=== PATIENT | male | born 1965 | race Caucasian/White ===

== ENCOUNTER 2017-07-17 07:47 | Emergency (ER) | payer BC ==
[2017-07-17 07:56] VITALS: BP 134/90; PULSE 93; TEMP 98.7; BMI 39.0
--- NOTE | 2017-07-17 08:03 | PDOC ---
Attending Attestation - Resident Resident Name: Jaspreet Harris - HPI HPI: 07/17/17 11:01 Pt presents to the ED complaining of a three day history of LLE redness and pain. States that he had a fever 4 days ago, which spontaneously resolved. Denies nausea and vomiting. Well appearing in the ED. Denies prior history of DM or other immunocompromise. 07/17/17 11:12 - Physicial Exam PE: 07/17/17 11:13 Agree with resident exam. LLE is red, hot and tender, with area of cellulitis extending from just above the ankle to just below the knee. - Medical Decision Making 07/17/17 11:13 Patient presents to the ED with LLE redness consistent with cellulitis. Since there are no systemic signs of infection, and the patient has not yet tried PO antibiotics, will treat in the ED with IV clinda and give rx for PO clinda at home. Labs are within normal limits. Patient instructed to return to fast track within two days for cellulitis check--will be admitted at that time if symptoms are not improving. Patient understands that he must return to the ED immediately for fevers, nausea and vomiting, spreading erythema.
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
[2017-07-17] MEDS ORDERED: SODIUM CHLORIDE 1,000 ML IV STA (08:45)
[2017-07-17 08:48] LABS: BASO % 0.7 % (0-2.0); EOS % 2.8 % (0-4.5); HEMATOCRIT 43.9 % (35.4-49); HEMOGLOBIN 14.8 GM/dL (11.7-16.9); LYMPH % 15.4 % (8-40); MCH 31.2 pg (25.7-33.7); MCHC 33.8 g/dl (32.0-35.9); MEAN CELL VOLUME 92.5 fl (80-96); MEAN PLT VOLUME 8.6 fl (7.5-11.1); MONO % 10.6 % (3.8-10.2); NEUT % 70.5 % (42.8-82.8); PLATELET COUNT 165 K/MM3 (134-434); RBC 4.75 M/mm3 (4.00-5.60); RDW 13.9 % (11.9-15.9); WHITE BLOOD COUNT 9.3 K/mm3 (4.0-10.0)
[2017-07-17] MEDS ORDERED: CLINDAMYCIN 600MG PREMIX IVPB 600 MG/50 ML BAG IVPB ONE ×2 (08:48→08:50)
[2017-07-17 09:06] LABS: INR 1.05 (0.82-1.09); PROTHROMBIN TIME (PATIENT) 11.9 SEC (9.98-11.88)
[2017-07-17 09:09] LABS: ACTIVATED PTT 31.2 SECONDS (26.9-34.4)
[2017-07-17 09:18] LABS: ANION GAP 6 (8-16); BILIRUBIN,TOTAL 0.5 mg/dL (0.2-1.0); BLOOD UREA NITROGEN 12 mg/dL (7-18); CHLORIDE 107 mmol/L (98-107); CO2 26 mmol/L (21-32); CREATININE 0.9 mg/dL (0.7-1.3); GLUCOSE,RANDOM 118 mg/dL (74-106); POTASSIUM 3.9 mmol/L (3.5-5.1); SGOT/AST 20 U/L (15-37); SGPT/ALT 44 U/L (12-78); SODIUM 139 mmol/L (136-145)
[2017-07-17 09:20] LABS: ALBUMIN 3.4 g/dl (3.4-5.0); ALK PHOS 51 U/L (45-117)
[2017-07-17] MEDS ORDERED: CLINDAMYCIN 600MG PREMIX IVPB 600 MG/50 ML BAG IVPB SCH (10:00)
--- NOTE | 2017-07-17 13:00 | EKG ---
Test Reason : Blood Pressure : / mmHG Vent. Rate : 090 BPM Atrial Rate : 090 BPM P-R Int : 134 ms QRS Dur : 088 ms QT Int : 342 ms P-R-T Axes : 032 -30 015 degrees QTc Int : 418 ms NORMAL SINUS RHYTHM LEFT AXIS DEVIATION POOR R WAVE PROGRESSION ABNORMAL ECG NO PREVIOUS ECGS AVAILABLE CLINICAL CORRELATION IS RECOMMENDED Confirmed by BERNA CH MD ([id number]) on 07/17/2017 1:00:04 PM Referred By: Confirmed By:BERNA CH MD
== END 2017-07-17 11:21 | disposition home or self-care (01) ==
LOC: JER 07:47
DX: L03.116 Cellulitis of left lower limb (principal); M79.662 Pain in left lower leg; T24.002S Burn of unspecified degree of unspecified site of left lower limb, except ankle and foot, sequela; X08.8XXS Exposure to other specified smoke, fire and flames, sequela
CPT/HCPCS: 36415; 71045-TC; 73562-TC-RT; 80053; 83605; 85025; 85610; 85730; 87040; 93005; 93010; 99283-25

== ENCOUNTER 2022-12-22 16:40 | Emergency (ER) | payer BC ==
[2022-12-22 16:53] VITALS: TEMP 98; BMI 41.8
[2022-12-22] MEDS ORDERED: chlordiazePOXIDE HCL 25 MG CAPSULE PO ONE (18:52)
[2022-12-22] MEDS ORDERED: chlordiazePOXIDE HCL 25 MG CAPSULE ONE (18:58)
[2022-12-22] MEDS ORDERED: LIDOCAINE HCL/PF 1% SDV 5ML VIAL ONE (20:23)
[2022-12-22 20:48] LABS: BASO % 0.6 % (0-2.0); HEMATOCRIT 42.7 % (35.4-49); HEMOGLOBIN 14.7 GM/dL (11.7-16.9); LYMPH % 21.4 % (8-40); MCH 31.8 pg (25.7-33.7); MCHC 34.5 g/dl (32.0-35.9); MEAN CELL VOLUME 92.2 fl (80-96); MEAN PLT VOLUME 8.9 fl (7.5-11.1); MONO % 9.3 % (3.8-10.2); NEUT % 66.7 % (42.8-82.8); PLATELET COUNT 196 10^3/uL (134-434); RBC 4.63 M/mm3 (4.00-5.60); RDW 13.5 % (11.9-15.9); WHITE BLOOD COUNT 9.6 K/mm3 (4.0-10.0)
[2022-12-22 20:58] VITALS: RESP 18
[2022-12-22 20:58] LABS: INR 1.04 (0.83-1.09); PROTHROMBIN TIME (PATIENT) 12.1 SEC (9.7-13.0)
[2022-12-22 21:01] LABS: ACTIVATED PTT 28.7 SECONDS (25.2-36.5)
[2022-12-22 21:14] LABS: CALCIUM 8.9 mg/dL (8.5-10.1)
[2022-12-22 21:15] LABS: ALBUMIN 3.8 g/dl (3.4-5.0); BLOOD UREA NITROGEN 17.8 mg/dL (7-18)
[2022-12-22 21:18] LABS: CREATININE 1.3 mg/dL (0.55-1.3)
[2022-12-22 21:20] LABS: BILIRUBIN,TOTAL 0.3 mg/dL (0.2-1); TOT PROT 7.1 g/dl (6.4-8.2)
[2022-12-22 22:10] VITALS: BP 116/72; PULSE 78
== END 2022-12-22 22:10 | disposition home or self-care (01) ==
LOC: JERFT 16:40
PROC: 0HQKXZZ Repair Right Lower Leg Skin, External Approach (ICD-10-PCS; principal; 2022-12-22)
DX: S91.011A Laceration without foreign body, right ankle, initial encounter (principal); M25.571 Pain in right ankle and joints of right foot; V28.09XA Other motorcycle driver injured in noncollision transport accident in nontraffic accident, initial encounter; Y93.55 Activity, bike riding
CPT/HCPCS: 36415; 73610-TC-RT-FY; 73630-TC-RT-FY; 80053; 82962; 85025; 85610; 85730; 87040; 87070; 87205; 93005; 93010; 99285-25

== ENCOUNTER 2023-01-23 12:28 | Inpatient (IN) | payer BC ==
[2023-01-23] MEDS ORDERED: PIPERACILLIN/TAZOB 4.5 GM 4.5 GM in DEXTROSE 5%-WATER 100 ML IVPB ONE (13:22)
[2023-01-23] MEDS ORDERED: VANCOMYCIN 2,000 MG in DEXTROSE 5%-WATER - 250 ML IVPB ONE (13:23)
[2023-01-23] MEDS ORDERED: morphine CARPU-JECT 4 MG/1 ML DISP.SYRIN IVPUSH ONE (13:27)
[2023-01-23] MEDS ORDERED: morphine SULFATE 4 MG/ML VIAL ONE (13:39)
[2023-01-23] MEDS ORDERED: PIPERACILLIN/TAZOB 4.5 GM 4.5 GM/100 ML BAG IVPB ONE (13:39)
[2023-01-23] MEDS ORDERED: VANCOMYCIN/WATER 2 GRAMS 2,000 MG/400 ML PIGGYBACK IVPB ONE (13:44)
[2023-01-23 13:51] LABS: EOS % 6.4 % (0-4.5); HEMATOCRIT 40.8 % (35.4-49); HEMOGLOBIN 14.2 GM/dL (11.7-16.9); MCHC 34.8 g/dl (32.0-35.9); MEAN CELL VOLUME 89.2 fl (80-96); MEAN PLT VOLUME 8.1 fl (7.5-11.1); MONO % 14.1 % (3.8-10.2); NEUT % 58.5 % (42.8-82.8); PLATELET COUNT 186 10^3/uL (134-434); RBC 4.57 M/mm3 (4.00-5.60)
[2023-01-23 14:01] LABS: INR 1.1 (0.83-1.09); PROTHROMBIN TIME (PATIENT) 12.7 SEC (9.7-13.0)
[2023-01-23 14:04] LABS: ACTIVATED PTT 30.4 SECONDS (25.2-36.5)
[2023-01-23 14:12] LABS: POTASSIUM 4.1 mmol/L (3.5-5.1)
[2023-01-23 14:14] LABS: CALCIUM 8.9 mg/dL (8.5-10.1)
[2023-01-23 14:15] LABS: ALBUMIN 3.5 g/dl (3.4-5.0); BLOOD UREA NITROGEN 20.1 mg/dL (7-18)
[2023-01-23 14:18] LABS: CREATININE 1.1 mg/dL (0.55-1.3)
[2023-01-23 14:20] LABS: BILIRUBIN,TOTAL 0.5 mg/dL (0.2-1)
[2023-01-23 14:30] LABS: ERYTHROCYTE SEDIMENTATION RATE 13 mm/hr (0-20)
[2023-01-23] MEDS: ENOXAPARIN NA (PORCINE) 40 MG/0.4 ML DISP.SYRIN SQ SCH ×2 (19:50→21:17)
[2023-01-23] MEDS: ACETAMINOPHEN 325 MG TABLET (FP) PO PRN (20:11)
[2023-01-23 20:30] VITALS: BMI 39.7
[2023-01-23] MEDS: PIPERACILLIN/TAZOB 4.5 GM 4.5 GM in DEXTROSE 5%-WATER 100 ML IVPB SCH (21:16)
[2023-01-23] MEDS ORDERED: ACETAMINOPHEN 1000 MG/100 ML BAG IVPB ONE (23:16)
[2023-01-24] MEDS: VANCOMYCIN PREMIX 1.5 GM 1,500 MG/300 ML BAG IVPB SCH ×2 (02:06→14:35)
[2023-01-24] MEDS: PIPERACILLIN/TAZOB 4.5 GM 4.5 GM in DEXTROSE 5%-WATER 100 ML IVPB SCH ×3 (05:22→21:04)
[2023-01-24] MEDS: ACETAMINOPHEN 325 MG TABLET (FP) PO PRN (09:19)
[2023-01-24] MEDS: ENOXAPARIN NA (PORCINE) 40 MG/0.4 ML DISP.SYRIN SQ SCH ×2 (09:19→21:03)
[2023-01-24] MEDS: oxyCODONE HCL 5 MG TABLET PO PRN ×3 (10:26→22:51)
[2023-01-25] MEDS: VANCOMYCIN PREMIX 1.5 GM 1,500 MG/300 ML BAG IVPB SCH ×2 (02:21→15:05)
[2023-01-25] MEDS: PIPERACILLIN/TAZOB 4.5 GM 4.5 GM in DEXTROSE 5%-WATER 100 ML IVPB SCH ×3 (05:18→21:40)
[2023-01-25] MEDS: oxyCODONE HCL 5 MG TABLET PO PRN ×2 (06:00→09:58)
[2023-01-25] MEDS: ENOXAPARIN NA (PORCINE) 40 MG/0.4 ML DISP.SYRIN SQ SCH ×2 (09:55→21:40)
[2023-01-25 11:31] LABS: HEMATOCRIT 39.6 % (35.4-49); HEMOGLOBIN 13.9 GM/dL (11.7-16.9); MCH 31.3 pg (25.7-33.7); MEAN CELL VOLUME 89.4 fl (80-96); MEAN PLT VOLUME 8.2 fl (7.5-11.1); PLATELET COUNT 170 10^3/uL (134-434); RBC 4.43 M/mm3 (4.00-5.60); RDW 13.3 % (11.9-15.9)
[2023-01-25 11:52] LABS: POTASSIUM 4.3 mmol/L (3.5-5.1)
[2023-01-25 11:53] LABS: CALCIUM 8.4 mg/dL (8.5-10.1)
[2023-01-25 11:54] LABS: BLOOD UREA NITROGEN 12.8 mg/dL (7-18)
[2023-01-25 11:57] LABS: CREATININE 1.1 mg/dL (0.55-1.3)
[2023-01-25] MEDS ORDERED: SILVER SULFADIAZINE 1% TOP CREAM 50 GM JAR TP SCH (12:15)
[2023-01-25] MEDS ORDERED: oxyCODONE HCL 5 MG TABLET PO PRN ×2 (12:42→12:43)
[2023-01-25] MEDS ORDERED: ACETAMINOPHEN 325 MG TABLET (FP) PO PRN (12:43)
[2023-01-25] MEDS: GABAPENTIN 100 MG CAPSULE PO SCH ×2 (13:25→21:40)
[2023-01-25] MEDS: DOCUSATE SODIUM 100 MG CAPSULE (FP) PO SCH ×2 (13:26→21:40)
[2023-01-25] MEDS: SILVER SULFADIAZINE 1% TOP CREAM 50 GM JAR TP SCH (15:35)
[2023-01-25] MEDS ORDERED: ACETAMINOPHEN 500 MG TABLET (FP) PO PRN (17:05)
[2023-01-26] MEDS: VANCOMYCIN PREMIX 1.5 GM 1,500 MG/300 ML BAG IVPB SCH (02:10)
[2023-01-26] MEDS: oxyCODONE HCL 5 MG TABLET PO PRN ×3 (02:14→20:45)
[2023-01-26] MEDS: PIPERACILLIN/TAZOB 4.5 GM 4.5 GM in DEXTROSE 5%-WATER 100 ML IVPB SCH ×3 (05:23→23:00)
[2023-01-26] MEDS: GABAPENTIN 100 MG CAPSULE PO SCH ×3 (05:24→23:00)
[2023-01-26 09:35] LABS: MCH 31.4 pg (25.7-33.7); MCHC 34.9 g/dl (32.0-35.9); MEAN CELL VOLUME 89.8 fl (80-96); MEAN PLT VOLUME 7.9 fl (7.5-11.1); PLATELET COUNT 190 10^3/uL (134-434); RBC 4.78 M/mm3 (4.00-5.60); RDW 13.4 % (11.9-15.9); WHITE BLOOD COUNT 5.5 K/mm3 (4.0-10.0)
[2023-01-26] MEDS ORDERED: COLLAGENASE CLOSTRIDIUM HIST. 30 GRAMS TUBE TP SCH ×2 (10:00→13:21)
[2023-01-26] MEDS: ENOXAPARIN NA (PORCINE) 40 MG/0.4 ML DISP.SYRIN SQ SCH ×2 (10:05→23:00)
[2023-01-26] MEDS: SILVER SULFADIAZINE 1% TOP CREAM 50 GM JAR TP SCH (10:05)
[2023-01-26] MEDS: DOCUSATE SODIUM 100 MG CAPSULE (FP) PO SCH ×2 (10:06→23:00)
[2023-01-26 10:52] LABS: POTASSIUM 4.5 mmol/L (3.5-5.1)
[2023-01-26 11:01] LABS: ALBUMIN 3.5 g/dl (3.4-5.0); BLOOD UREA NITROGEN 16.7 mg/dL (7-18); CALCIUM 8.9 mg/dL (8.5-10.1)
[2023-01-26 11:06] LABS: BILIRUBIN,TOTAL 0.4 mg/dL (0.2-1); TOT PROT 7.1 g/dl (6.4-8.2)
[2023-01-27] MEDS: PIPERACILLIN/TAZOB 4.5 GM 4.5 GM in DEXTROSE 5%-WATER 100 ML IVPB SCH ×3 (05:31→21:40)
[2023-01-27] MEDS: GABAPENTIN 100 MG CAPSULE PO SCH ×3 (05:32→21:41)
[2023-01-27] MEDS: oxyCODONE HCL 5 MG TABLET PO PRN ×4 (05:55→20:03)
[2023-01-27 09:16] LABS: HEMATOCRIT 41.1 % (35.4-49); HEMOGLOBIN 14.2 GM/dL (11.7-16.9); MCH 31.4 pg (25.7-33.7); MCHC 34.5 g/dl (32.0-35.9); MEAN CELL VOLUME 91.1 fl (80-96); MEAN PLT VOLUME 8.4 fl (7.5-11.1); PLATELET COUNT 186 10^3/uL (134-434); RBC 4.51 M/mm3 (4.00-5.60); RDW 13.1 % (11.9-15.9); WHITE BLOOD COUNT 5.7 K/mm3 (4.0-10.0)
[2023-01-27 09:53] LABS: POTASSIUM 4.1 mmol/L (3.5-5.1)
[2023-01-27 09:55] LABS: BLOOD UREA NITROGEN 13.5 mg/dL (7-18)
[2023-01-27 09:56] LABS: ALBUMIN 3.4 g/dl (3.4-5.0); CALCIUM 8.6 mg/dL (8.5-10.1)
[2023-01-27 09:59] LABS: CREATININE 1.1 mg/dL (0.55-1.3)
[2023-01-27 10:01] LABS: BILIRUBIN,TOTAL 0.5 mg/dL (0.2-1); TOT PROT 6.9 g/dl (6.4-8.2)
[2023-01-27] MEDS: DOCUSATE SODIUM 100 MG CAPSULE (FP) PO SCH ×2 (10:49→21:41)
[2023-01-27] MEDS: ENOXAPARIN NA (PORCINE) 40 MG/0.4 ML DISP.SYRIN SQ SCH ×2 (10:49→21:41)
[2023-01-27] MEDS: COLLAGENASE CLOSTRIDIUM HIST. 30 GRAMS TUBE TP SCH (10:50)
[2023-01-28] MEDS: PIPERACILLIN/TAZOB 4.5 GM 4.5 GM in DEXTROSE 5%-WATER 100 ML IVPB SCH ×3 (05:58→21:27)
[2023-01-28] MEDS: GABAPENTIN 100 MG CAPSULE PO SCH ×3 (05:58→21:28)
[2023-01-28] MEDS: oxyCODONE HCL 5 MG TABLET PO PRN ×2 (06:11→19:28)
[2023-01-28] MEDS ORDERED: INSULIN (NOVOLOG) ASPART 100 UNITS/ML 10ML VIAL ONE (08:07)
[2023-01-28] MEDS ORDERED: oxyCODONE HCL 5 MG TABLET PO PRN (08:08)
[2023-01-28 08:31] LABS: HEMATOCRIT 41.6 % (35.4-49); MCH 30.8 pg (25.7-33.7); MCHC 33.6 g/dl (32.0-35.9); MEAN CELL VOLUME 91.5 fl (80-96); MEAN PLT VOLUME 8.3 fl (7.5-11.1); PLATELET COUNT 173 10^3/uL (134-434); RBC 4.54 M/mm3 (4.00-5.60); WHITE BLOOD COUNT 4.6 K/mm3 (4.0-10.0)
[2023-01-28 08:56] LABS: POTASSIUM 4.6 mmol/L (3.5-5.1)
[2023-01-28 08:57] LABS: BLOOD UREA NITROGEN 15.1 mg/dL (7-18); CALCIUM 8.1 mg/dL (8.5-10.1)
[2023-01-28] MEDS: COLLAGENASE CLOSTRIDIUM HIST. 30 GRAMS TUBE TP SCH (10:41)
[2023-01-28] MEDS: DOCUSATE SODIUM 100 MG CAPSULE (FP) PO SCH ×2 (10:41→21:27)
[2023-01-28] MEDS ORDERED: oxyCODONE HCL 5 MG TABLET PO ONE (11:26)
[2023-01-28] MEDS: ENOXAPARIN NA (PORCINE) 40 MG/0.4 ML DISP.SYRIN SQ SCH (11:34)
[2023-01-29] MEDS: oxyCODONE HCL 5 MG TABLET PO PRN ×3 (02:59→21:48)
[2023-01-29] MEDS ORDERED: PANTOPRAZOLE 20 MG TABLET PO ONE (04:46)
[2023-01-29] MEDS: GABAPENTIN 100 MG CAPSULE PO SCH ×3 (05:10→21:48)
[2023-01-29] MEDS: PIPERACILLIN/TAZOB 4.5 GM 4.5 GM in DEXTROSE 5%-WATER 100 ML IVPB SCH ×3 (05:13→21:48)
[2023-01-29] MEDS ORDERED: INSULIN (NOVOLOG) ASPART 100 UNITS/ML 10ML VIAL ONE (09:01)
[2023-01-29] MEDS ORDERED: INSULIN (LEVEMIR) 100 UNITS/ML UNITS SQ ONE (09:02)
[2023-01-29 09:25] LABS: HEMOGLOBIN 13.6 GM/dL (11.7-16.9); MCH 30.8 pg (25.7-33.7); MEAN CELL VOLUME 90.7 fl (80-96); MEAN PLT VOLUME 8.5 fl (7.5-11.1); PLATELET COUNT 172 10^3/uL (134-434); RBC 4.41 M/mm3 (4.00-5.60); RDW 12.9 % (11.9-15.9); WHITE BLOOD COUNT 5.5 K/mm3 (4.0-10.0)
[2023-01-29 09:29] LABS: INR 1.03 (0.83-1.09)
[2023-01-29 09:49] LABS: POTASSIUM 4.1 mmol/L (3.5-5.1)
[2023-01-29 09:53] LABS: ALBUMIN 3.3 g/dl (3.4-5.0); BLOOD UREA NITROGEN 12.9 mg/dL (7-18); CALCIUM 8.3 mg/dL (8.5-10.1)
[2023-01-29 09:58] LABS: BILIRUBIN,TOTAL 0.6 mg/dL (0.2-1); TOT PROT 6.3 g/dl (6.4-8.2)
[2023-01-29] MEDS: DOCUSATE SODIUM 100 MG CAPSULE (FP) PO SCH ×2 (10:34→21:48)
[2023-01-29] MEDS: COLLAGENASE CLOSTRIDIUM HIST. 30 GRAMS TUBE TP SCH (10:34)
[2023-01-29] MEDS ORDERED: LACTATED RINGERS SOLUTION 1,000 ML/1,000 ML INFUS.BAG IV SCH (12:30)
[2023-01-29] MEDS ORDERED: PROPOFOL 40 ML ONE (16:51)
[2023-01-29] MEDS ORDERED: HYDROmorphone HCl 2 MG/ML VIAL ONE ×2 (16:51→17:48)
[2023-01-29] MEDS ORDERED: MIDAZOLAM HCL 2 MG/2 ML SINGLE DOSE VIAL ONE (16:51)
[2023-01-29] MEDS ORDERED: ONDANSETRON 4 MG/2 ML VIAL IVPUSH PRN ×2 (16:57→17:43)
[2023-01-29] MEDS ORDERED: LACTATED RINGERS SOLUTION 1,000 ML IV SCH ×2 (17:00→17:43)
[2023-01-29] MEDS ORDERED: HYDROmorphone HCl 2 MG/ML VIAL IVPB PRN (17:41)
[2023-01-29] MEDS: LACTATED RINGERS SOLUTION 1,000 ML/1,000 ML INFUS.BAG IV SCH (17:45)
[2023-01-29] MEDS ORDERED: PIPERACILLIN/TAZOB 4.5 GM 4.5 GM in DEXTROSE 5%-WATER 100 ML IVPB SCH (18:00)
[2023-01-29] MEDS ORDERED: HYDROmorphone HCl 2 MG/ML VIAL IVPUSH ONE (18:09)
[2023-01-29] MEDS: ACETAMINOPHEN 500 MG TABLET (FP) PO PRN (23:08)
[2023-01-30] MEDS: PIPERACILLIN/TAZOB 4.5 GM 4.5 GM in DEXTROSE 5%-WATER 100 ML IVPB SCH ×3 (05:42→21:40)
[2023-01-30] MEDS: GABAPENTIN 100 MG CAPSULE PO SCH ×3 (05:43→21:40)
[2023-01-30] MEDS: oxyCODONE HCL 5 MG TABLET PO PRN ×3 (08:13→22:10)
[2023-01-30] MEDS: DOCUSATE SODIUM 100 MG CAPSULE (FP) PO SCH ×3 (09:03→21:48)
[2023-01-30] MEDS: ACETAMINOPHEN 500 MG TABLET (FP) PO PRN (10:03)
[2023-01-30] MEDS: COLLAGENASE CLOSTRIDIUM HIST. 30 GRAMS TUBE TP SCH (11:04)
[2023-01-30] MEDS: LACTATED RINGERS SOLUTION 1,000 ML/1,000 ML INFUS.BAG IV SCH (18:52)
[2023-01-30 18:54] VITALS: RESP 18
[2023-01-31] MEDS: oxyCODONE HCL 5 MG TABLET PO PRN ×4 (04:15→20:50)
[2023-01-31] MEDS: PIPERACILLIN/TAZOB 4.5 GM 4.5 GM in DEXTROSE 5%-WATER 100 ML IVPB SCH ×3 (04:16→20:51)
[2023-01-31] MEDS: GABAPENTIN 100 MG CAPSULE PO SCH ×3 (05:52→21:57)
[2023-01-31] MEDS: LACTATED RINGERS SOLUTION 1,000 ML/1,000 ML INFUS.BAG IV SCH ×2 (05:53→18:16)
[2023-01-31] MEDS ORDERED: INSULIN (LEVEMIR) 100 UNITS/ML UNITS SQ ONE (07:48)
[2023-01-31] MEDS ORDERED: INSULIN (NOVOLOG) ASPART 100 UNITS/ML 10ML VIAL ONE (07:48)
[2023-01-31] MEDS: DOCUSATE SODIUM 100 MG CAPSULE (FP) PO SCH ×2 (09:08→21:57)
[2023-01-31] MEDS: COLLAGENASE CLOSTRIDIUM HIST. 30 GRAMS TUBE TP SCH (09:09)
[2023-02-01] MEDS: PIPERACILLIN/TAZOB 4.5 GM 4.5 GM in DEXTROSE 5%-WATER 100 ML IVPB SCH ×2 (04:19→12:03)
[2023-02-01] MEDS: oxyCODONE HCL 5 MG TABLET PO PRN (06:21)
[2023-02-01] MEDS: GABAPENTIN 100 MG CAPSULE PO SCH ×2 (06:22→13:27)
[2023-02-01] MEDS: COLLAGENASE CLOSTRIDIUM HIST. 30 GRAMS TUBE TP SCH (10:00)
[2023-02-01] MEDS ORDERED: KETOROLAC TROMETHAMINE 10 MG TABLET PO PRN (10:00)
[2023-02-01] MEDS ORDERED: IBUPROFEN 400 MG TABLET (FP) PO PRN (10:01)
[2023-02-01] MEDS: DOCUSATE SODIUM 100 MG CAPSULE (FP) PO SCH (10:01)
[2023-02-01] MEDS ORDERED: oxyCODONE HCL 5 MG TABLET PO ONE (11:18)
[2023-02-01 13:07] VITALS: BP 143/97; PULSE 77; TEMP 97.9
== END 2023-02-01 13:37 | disposition home or self-care (01) | DRG 571 ==
LOC: JER 12:28 → JERBED 15:53 → J7W 16:51
PROVIDERS: ADMIT Internal Medicine; ATTEND Internal Medicine
PROC: 0JBQ0ZZ Excision of Right Foot Subcutaneous Tissue and Fascia, Open Approach (ICD-10-PCS; principal; 2023-01-29 17:00)
DX: L03.115 Cellulitis of right lower limb (principal); I96 Gangrene, not elsewhere classified; L97.318 Non-pressure chronic ulcer of right ankle with other specified severity; S91.001A Unspecified open wound, right ankle, initial encounter; I10 Essential (primary) hypertension; J44.9 Chronic obstructive pulmonary disease, unspecified; I77.1 Stricture of artery; E66.9 Obesity, unspecified; Z68.38 Body mass index [BMI] 38.0-38.9, adult; B95.2 Enterococcus as the cause of diseases classified elsewhere; B95.7 Other staphylococcus as the cause of diseases classified elsewhere; V89.2XXA Person injured in unspecified motor-vehicle accident, traffic, initial encounter; Y93.9 Activity, unspecified; Y92.9 Unspecified place or not applicable
CPT/HCPCS: 36415; 73610-TC-RT-FY; 73630-TC-RT-FY; 73701-TC-RT; 73721-RT-TC; 80048; 80053; 80061; 83036; 85025; 85027; 85610; 85651; 85730; 86140; 86850; 86900; 86901; 87040; 87070; 87186; 87205; 88304-TC; 93005; 93010; 93926-TC; 94760; 99285-25; G0480